=== PATIENT | male | born 1950 | race Caucasian/White ===

== ENCOUNTER 2021-08-08 10:14 | Emergency (ER) | payer OTHER ==
[~2021-08-08] VITALS: Ht 180.3 cm; Wt 81.7 kg
[2021-08-08] MEDS ORDERED: METO50ER PO (10:47)
[2021-08-08] MEDS ORDERED: PROZAC40 MG (10:47)
[2021-08-08] MEDS ORDERED: Desyrel150 MG (10:48)
[2021-08-08] MEDS ORDERED: ZOCOR20 MG (10:48)
[2021-08-08] MEDS ORDERED: HYDCHL25 (10:48)
[2021-08-08] MEDS ORDERED: ASPIR 8181 MG PO (10:48)
[2021-08-08] MEDS ORDERED: LISI5 (10:48)
[2021-08-08 10:55] LABS: Hematocrit 42.1 % (37.0-53.0); Hemoglobin 14.5 g/dL (13.5-17.5); Mean Corpuscular HGB 30.2 pg (26.0-34.0); Mean Corpuscular HGB Conc 34.4 g/dL (31.5-36.5); Mean Corpuscular Volume 88 fL (80-100); Mean Platelet Volume 10.5 fL (9.1-12.4); Platelet Count 191 K/mm3 (150-400); RDW Coefficient Variation 12.2 % (11.7-14.2); RDW Standard Deviation 39.2 fL (35.1-46.3); White Blood Cell Count 16.18 K/mm3 (4.00-11.30)
[2021-08-08 11:17] LABS: Alanine Aminotransfer (ALT/SGP 24 U/L (12-78); Albumin/Globulin Ratio 0.8 (0.8-1.8); Alk Phos 91 U/L (50-136); Anion Gap 6 mmol/L (6-16); Aspartate Aminotrans (AST/SGOT 21 U/L (12-37); Blood Urea Nitrogen 24 mg/dL (8-24); Bun/Creatinine Ratio 17.4 (12.0-20.0); CO2, Blood 26 mmol/L (21-32); Calcium, Blood 9.6 mg/dL (8.5-10.1); Chloride, Blood 105 mmol/L (98-108); Creatinine, Blood 1.38 mg/dL (0.60-1.20); Globulin, Blood 3.9 g/dL (2.2-4.0); Glomerular Filtration Rate 51 (60-); Glucose, Blood 134 mg/dL (70-99); Potassium, Blood 4.2 mmol/L (3.5-5.5); Sodium, Blood 137 mmol/L (136-145); Total Protein, Blood 6.9 g/dL (6.4-8.2); Troponin I <0.015 ng/mL (0.000-0.040)
[2021-08-08 11:44] LABS: SARS-Cov-2 (COVID-19) PCR, MMC NEGATIVE (NEGATIVE)
[2021-08-08 12:09] LABS: BAND PERCENT MAN 16 % (0-8); BASOPHILS PERCENT MAN 0 % (0-2); EOSINOPHILS PERCENT MAN 0 % (0-6); LYMPHOCYTES ABSOLUTE MAN 1.13 K/mm3 (0.84-5.20); LYMPHOCYTES PERCENT MAN 7 % (21-46); MONOCYTES ABSOLUTE MAN 0.97 K/mm3 (0.16-1.47); MONOCYTES PERCENT MAN 6 % (4-13); NEUTROPHILS ABSOLUTE MAN 14.07 K/mm3 (1.96-9.15); SEG NEUTROPHILS PERCENT MAN 71 % (41-73); TOTAL CELLS COUNTED 100
[2021-08-08] MEDS ORDERED: Amoxicillin500 MG PO (14:18)
== END 2021-08-08 14:50 | disposition home or self-care (01) ==
LOC: ER 10:14
PROVIDERS: Physician Assistant
DX: J18.9 Pneumonia, unspecified organism (principal); Z87.891 Personal history of nicotine dependence; Z79.899 Other long term (current) drug therapy; Z20.822 Contact with and (suspected) exposure to COVID-19
CPT/HCPCS: 36415; 71045; 71260; 80053; 84484; 85025; 93005; 93010; 96365-59; 99285-25; J0696; Q9967; U0004

== ENCOUNTER 2022-08-08 10:50 | Day surgery (SDC) | payer OTHER ==
[~2022-08-08] VITALS: Ht 182.9 cm; Wt 84.8 kg
[~2022-08-08 10:50] MED LIST: ASPIR 8181 MG PO; Amoxicillin500 MG PO; Desyrel150 MG; HYDCHL25; LISI5; METO50ER PO; PROZAC40 MG; ZOCOR20 MG
== END 2022-08-08 13:19 | disposition home or self-care (01) ==
LOC: ORSCSDS 10:50
PROVIDERS: Ophthalmology
PROC: 08RJ3JZ Replacement of Right Lens with Synthetic Substitute, Percutaneous Approach (ICD-10-PCS; principal; 2022-08-08 13:30)
DX: H25.11 Age-related nuclear cataract, right eye (principal); I10 Essential (primary) hypertension; E78.5 Hyperlipidemia, unspecified; J44.9 Chronic obstructive pulmonary disease, unspecified; Z79.899 Other long term (current) drug therapy; Z79.82 Long term (current) use of aspirin
CPT/HCPCS: J2001; J2250; J3010; J3301; J7040; V2632

== ENCOUNTER 2022-08-22 07:55 | Day surgery (SDC) | payer OTHER ==
[~2022-08-22] VITALS: Ht 182.9 cm; Wt 85.3 kg
--- NOTE | 2022-08-22 09:00 | NUR ---
08/22/22 0900 Marcy Garcia [id number] PLEDGET AT [id number]
[2022-08-22] MEDS ORDERED: STIOLTO RESPIMAT4 G1 IH (09:09)
== END 2022-08-22 10:02 | disposition home or self-care (01) ==
LOC: ORSCSDS 07:55
PROVIDERS: Ophthalmology
PROC: 08DK3ZZ Extraction of Left Lens, Percutaneous Approach (ICD-10-PCS; principal; 2022-08-22 09:30)
DX: H25.12 Age-related nuclear cataract, left eye (principal); Z96.1 Presence of intraocular lens; I10 Essential (primary) hypertension; J44.9 Chronic obstructive pulmonary disease, unspecified; Z79.82 Long term (current) use of aspirin; Z79.899 Other long term (current) drug therapy
CPT/HCPCS: J2001; J2250; J3010; J3301; J7040; V2632

== ENCOUNTER → 2022-12-27 | Outpatient (CLI) | payer OTHER ==
[~2022-12-27] MED LIST changes: +STIOLTO RESPIMAT4 G1 IH
[2022-12-27 14:47] LABS: Alanine Aminotransfer (ALT/SGP 38 U/L (12-78); Albumin, Blood 3.3 g/dL (3.4-5.0); Albumin/Globulin Ratio 0.9 (0.8-1.8); Alk Phos 97 U/L (50-136); Anion Gap 4 mmol/L (6-16); Aspartate Aminotrans (AST/SGOT 29 U/L (12-37); Bilirubin, Total 0.4 mg/dL (0.1-1.0); Blood Urea Nitrogen 20 mg/dL (8-24); Bun/Creatinine Ratio 21.3 (12.0-20.0); CO2, Blood 27 mmol/L (21-32); Calcium, Blood 8.8 mg/dL (8.5-10.1); Chloride, Blood 107 mmol/L (98-108); Cholesterol 149 mg/dL (50-200); Creatinine, Blood 0.94 mg/dL (0.60-1.20); Globulin, Blood 3.5 g/dL (2.2-4.0); Glomerular Filtration Rate 87 (60-); Glucose, Blood 121 mg/dL (70-99); HDL Cholesterol 37 mg/dL (>39); LDL/HDL RATIO 2.5; Low Density Lipoprotein Chol 91 mg/dL (0-110); Potassium, Blood 4.4 mmol/L (3.5-5.5); Sodium, Blood 138 mmol/L (136-145); Total Protein, Blood 6.8 g/dL (6.4-8.2); Triglycerides 103 mg/dL (30-160); Very Low Density Lipoprot Chol 20 mg/dL (6-32)
[2022-12-27 16:14] LABS: BASOPHILS ABSOLUTE AUTO 0.03 K/mm3 (0.00-0.23); BASOPHILS PERCENT AUTO 0 % (0-2); EOSINOPHILS PERCENT AUTO 3 % (0-6); Hematocrit 42.3 % (37.0-53.0); Hemoglobin 14.3 g/dL (13.5-17.5); IMMATURE GRAN ABSOLUTE AUTO 0.04 K/mm3 (0.00-0.10); IMMATURE GRAN PERCENT AUTO 1 % (0-1); LYMPHOCYTES ABSOLUTE AUTO 1.52 K/mm3 (0.84-5.20); LYMPHOCYTES PERCENT AUTO 21 % (21-46); MONOCYTES ABSOLUTE AUTO 0.52 K/mm3 (0.16-1.47); MONOCYTES PERCENT AUTO 7 % (4-13); Mean Corpuscular HGB 29.7 pg (26.0-34.0); Mean Corpuscular HGB Conc 33.8 g/dL (31.5-36.5); Mean Corpuscular Volume 88 fL (80-100); Mean Platelet Volume 11.5 fL (9.1-12.4); NEUTROPHILS ABSOLUTE AUTO 4.87 K/mm3 (1.96-9.15); NEUTROPHILS PERCENT AUTO 68 % (41-73); Platelet Count 191 K/mm3 (150-400); RDW Coefficient Variation 12.4 % (11.7-14.2); RDW Standard Deviation 39.9 fL (35.1-46.3); Red Blood Cell Count 4.82 M/mm3 (4.30-5.90); White Blood Cell Count 7.18 K/mm3 (4.00-11.30)
== END | disposition home or self-care (01) ==
LOC: LAB SHORT 12:00
PROVIDERS: Physician Assistant
DX: E78.5 Hyperlipidemia, unspecified (principal); I10 Essential (primary) hypertension
CPT/HCPCS: 80053; 80061; 85025

== ENCOUNTER 2023-08-29 15:47 | Emergency (ER) | payer OTHER ==
[~2023-08-29] VITALS: Ht 180.3 cm; Wt 86.2 kg
[2023-08-29] MEDS ORDERED: Percocet 5-3251 EACH PO (18:07)
[2023-08-29] MEDS ORDERED: AMOCLA875 PO (18:07)
[2023-08-29 18:20] VITALS: BP 143/80
== END 2023-08-29 18:20 | disposition home or self-care (01) ==
LOC: ER 15:47
DX: S51.811A Laceration without foreign body of right forearm, initial encounter (principal); S20.212A Contusion of left front wall of thorax, initial encounter; W11.XXXA Fall on and from ladder, initial encounter; Z79.899 Other long term (current) drug therapy; Z79.82 Long term (current) use of aspirin
CPT/HCPCS: 12002; 71046; 73090; 90471; 90714; 99284-25; A9270

== ENCOUNTER 2023-09-05 10:15 | Emergency (ER) | payer OTHER ==
[~2023-09-05] VITALS: Ht 180.3 cm; Wt 86.2 kg
[~2023-09-05 10:15] MED LIST changes: +AMOCLA875 PO; +Percocet 5-3251 EACH PO
[2023-09-05 10:35] VITALS: BP 134/83
== END 2023-09-05 11:11 | disposition home or self-care (01) ==
LOC: ER 10:15
DX: S41.111D Laceration without foreign body of right upper arm, subsequent encounter (principal); Z79.899 Other long term (current) drug therapy

== ENCOUNTER 2025-01-31 20:36 | Emergency (ER) | payer OTHER ==
[~2025-01-31] VITALS: Ht 180.3 cm; Wt 81.7 kg
[2025-01-31 21:34] LABS: BASOPHILS ABSOLUTE AUTO 0.06 K/mm3 (0.00-0.23); BASOPHILS PERCENT AUTO 0 % (0-2); EOSINOPHILS ABSOLUTE AUTO 0.04 K/mm3 (0.00-0.68); EOSINOPHILS PERCENT AUTO 0 % (0-6); Hematocrit 39.7 % (37.0-53.0); Hemoglobin 13.2 g/dL (13.5-17.5); IMMATURE GRAN ABSOLUTE AUTO 0.25 K/mm3 (0.00-0.10); IMMATURE GRAN PERCENT AUTO 1 % (0-1); LYMPHOCYTES ABSOLUTE AUTO 1.26 K/mm3 (0.84-5.20); LYMPHOCYTES PERCENT AUTO 6 % (21-46); MONOCYTES ABSOLUTE AUTO 1.57 K/mm3 (0.16-1.47); MONOCYTES PERCENT AUTO 7 % (4-13); Mean Corpuscular HGB 28.9 pg (26.0-34.0); Mean Corpuscular HGB Conc 33.2 g/dL (31.5-36.5); Mean Corpuscular Volume 87 fL (80-100); Mean Platelet Volume 10.6 fL (9.1-12.4); NEUTROPHILS ABSOLUTE AUTO 19.66 K/mm3 (1.96-9.15); NEUTROPHILS PERCENT AUTO 86 % (41-73); Platelet Count 209 K/mm3 (150-400); RDW Coefficient Variation 12.9 % (11.7-14.2); Red Blood Cell Count 4.56 M/mm3 (4.30-5.90); White Blood Cell Count 22.84 K/mm3 (4.00-11.30)
[2025-01-31 21:54] LABS: Albumin, Blood 3.1 g/dL (3.4-5.0); Albumin/Globulin Ratio 0.8 (0.8-1.8); Bilirubin, Total 0.6 mg/dL (0.1-1.0); Calcium, Blood 8.8 mg/dL (8.5-10.1); Creatinine, Blood 1.19 mg/dL (0.60-1.20); Potassium, Blood 3.8 mmol/L (3.5-5.5); Total Protein, Blood 7.1 g/dL (6.4-8.2)
[2025-01-31 23:04] LABS: Source, Urine Clean Catch
[2025-01-31 23:08] LABS: Bilirubin, Urine Neg (Neg); Blood, Urine 5+ (Neg); Glucose Qualitative, Urine Neg (Neg); Ketones, Urine Neg (Neg); Leukocyte Esterase, Urine 2+ (Neg); Nitrite, Urine Neg (Neg); Protein, Urine 2+ (Neg); Specific Gravity, Urine 1.015 (1.003-1.022); Urobilinogen, Urine NORM (Normal)
[2025-01-31 23:10] LABS: Appearance, Urine Hazy (Clear); Color, Urine Yellow (P-Yellow)
[2025-01-31 23:14] LABS: Bacteria Many /hpf; Red Blood Cells, Urine 0-2 /hpf (0-2); Squamous Epithelial Cells Not Seen /hpf (Few); White Blood Cells, Urine 50-100 /hpf (0-5)
[2025-02-01] MEDS ORDERED: Trimethoprim/Sulfamethoxazole DS Tab PO ONE (00:20)
[2025-02-01] MEDS ORDERED: BACTRIM DS TAB1 EAC1 PO (00:21)
[2025-02-01 00:22] VITALS: BP 127/73
== END 2025-02-01 00:49 | disposition home or self-care (01) ==
LOC: ER 20:36
PROVIDERS: Student in an Organized Health Care Education/Training Program
DX: N30.90 Cystitis, unspecified without hematuria (principal); I10 Essential (primary) hypertension; E78.5 Hyperlipidemia, unspecified; Z79.899 Other long term (current) drug therapy; Z79.82 Long term (current) use of aspirin
CPT/HCPCS: 80053; 81001; 85025; 87077; 87086; 87186; 99283; A9270

== ENCOUNTER 2025-02-04 08:39 | Emergency (ER) | payer OTHER ==
[~2025-02-04] VITALS: Ht 180.3 cm; Wt 81.7 kg
[~2025-02-04 08:39] MED LIST changes: +BACTRIM DS TAB1 EAC1 PO
[2025-02-04 09:55] LABS: Source, Urine Straight Cath
[2025-02-04 10:06] LABS: Appearance, Urine Clear (Clear); Bilirubin, Urine Neg (Neg); Blood, Urine 5+ (Neg); Color, Urine Yellow (P-Yellow); Glucose Qualitative, Urine Neg (Neg); Ketones, Urine 1+ (Neg); Leukocyte Esterase, Urine 2+ (Neg); Nitrite, Urine Neg (Neg); Protein, Urine 1+ (Neg); Specific Gravity, Urine 1.015 (1.003-1.022); Urobilinogen, Urine NORM (Normal)
[2025-02-04 10:46] LABS: Squamous Epithelial Cells Not Seen /hpf (Few)
[2025-02-04 10:48] LABS: Bacteria Mod /hpf; Mucus Light (0-Heavy)
[2025-02-04 11:59] LABS: BASOPHILS ABSOLUTE AUTO 0.04 K/mm3 (0.00-0.23); BASOPHILS PERCENT AUTO 1 % (0-2); EOSINOPHILS ABSOLUTE AUTO 0.18 K/mm3 (0.00-0.68); EOSINOPHILS PERCENT AUTO 2 % (0-6); Hematocrit 38.8 % (37.0-53.0); Hemoglobin 13.6 g/dL (13.5-17.5); IMMATURE GRAN ABSOLUTE AUTO 0.07 K/mm3 (0.00-0.10); IMMATURE GRAN PERCENT AUTO 1 % (0-1); LYMPHOCYTES ABSOLUTE AUTO 0.95 K/mm3 (0.84-5.20); LYMPHOCYTES PERCENT AUTO 12 % (21-46); MONOCYTES ABSOLUTE AUTO 0.89 K/mm3 (0.16-1.47); MONOCYTES PERCENT AUTO 11 % (4-13); Mean Corpuscular HGB 29.8 pg (26.0-34.0); Mean Corpuscular HGB Conc 35.1 g/dL (31.5-36.5); Mean Corpuscular Volume 85 fL (80-100); NEUTROPHILS ABSOLUTE AUTO 5.84 K/mm3 (1.96-9.15); NEUTROPHILS PERCENT AUTO 73 % (41-73); Platelet Count 261 K/mm3 (150-400); RDW Coefficient Variation 12.8 % (11.7-14.2); RDW Standard Deviation 39.6 fL (35.1-46.3); Red Blood Cell Count 4.56 M/mm3 (4.30-5.90); White Blood Cell Count 7.97 K/mm3 (4.00-11.30)
[2025-02-04 12:22] LABS: Albumin, Blood 2.9 g/dL (3.4-5.0); Albumin/Globulin Ratio 0.6 (0.8-1.8); Bilirubin, Total 0.5 mg/dL (0.1-1.0); Bun/Creatinine Ratio 13.4 (12.0-20.0); Calcium, Blood 9.5 mg/dL (8.5-10.1); Creatinine, Blood 0.97 mg/dL (0.60-1.20); Globulin, Blood 4.5 g/dL (2.2-4.0); Potassium, Blood 3.9 mmol/L (3.5-5.5); Total Protein, Blood 7.4 g/dL (6.4-8.2)
[2025-02-04] MEDS ORDERED: Tamsulosin HCl 0.4 MG Cap PO ONE (13:25)
[2025-02-04] MEDS ORDERED: Ciprofloxacin 500 MG Tab PO ONE (13:25)
[2025-02-04] MEDS ORDERED: CIPR500 PO (13:39)
[2025-02-04] MEDS ORDERED: TAMS.4ER PO (13:43)
[2025-02-04 13:47] VITALS: BP 147/76
== END 2025-02-04 14:05 | disposition home or self-care (01) ==
LOC: ER 08:39
PROVIDERS: Student in an Organized Health Care Education/Training Program
DX: N40.1 Benign prostatic hyperplasia with lower urinary tract symptoms (principal); R33.8 Other retention of urine; Z79.82 Long term (current) use of aspirin; Z79.899 Other long term (current) drug therapy
CPT/HCPCS: 51702; 51798; 80053; 81001; 85025; 87086; 99283-25; A9270